=== PATIENT | female | born 1970 | race Caucasian/White ===

== ENCOUNTER 2016-08-02 08:00 | Day surgery (SDC) | payer BC ==
[2016-08-02] MEDS ORDERED: LIDOCAINE HCL 10 APPL CARTRIDGE TP ONE (14:20)
--- NOTE | 2016-08-02 14:45 | OR ---
Operative Report - Dictated Report Narrative: Location: Main OR Anesthesia: None Preoperative Diagnosis: Microhematuria Postoperative Diagnosis: Same Procedure: #1 flexible cystoscopy with washing for cytology Indications: 46-year-old female with microhematuria and significant cancer history in the family. Ultrasound obtained without renal masses or hydronephrosis. Cystoscopy indicated to clear the bladder. Description: Consent obtained. Placed in the frog-leg position. Prepped and draped. Time-out taken . Scope inserted into the urethra and navigated to the bladder with ease. No tumors stones or suspicious lesions . Washing was obtained sent for cytology. No real trabeculation Ureters normal in number and position Normal bladder neck Normal urethra EBL: 0 Specimen: Washing for cytology Condition: tolerate procedure Important Findings: Normal cystoscopy. Cytology pending FOLLOW UP: 6 month voided UA provided cytology normal
[2016-08-02 15:10] VITALS: BP 150/88
--- OUTSIDE RECORDS SUMMARY | 2016-08-04 13:24 | XMS REPORT | Continuity of Care Document ---
:1970 Author Organization [facility] ([facility]) Address [address] [place] [address] Phone [phone] Care Team Providers Name Role Phone Falguni Gregory Primary Care Provider [phone] Source Comments This disclosure is being made pursuant to the Care Everywhere program, applicable federal and state laws, and may not contain all informaitonavailable regarding this patient.[facility] ([facility]) Active Allergies and Adverse Reactions No Known Allergies Current Medications Prescription Sig. Disp. Refills Start Date End Date Status levothyroxine 50 mcg take 1 tablet 03/19/2012 Active tablet (50MCG) by oral route every day ZOLMitriptan 5 mg once as 2015 Active tablet needed. ZOLMitriptan 2.5 mg once as 2015 Active tablet needed. clotrimazole-betamet as needed. 06/21/2015 Active hasone 1-0.05% cream losartan-hydrochloro Take 1 tablet 90 tablet 3 07/29/2015 Active thiazide 100-12.5 mg by mouth per tablet daily. KATHRYN LO 40 40 % 06/21/2015 08/01/2016 Discontinued lotion Active Problems Problem Noted Date Hyperlipidemia Hypertension Overview: Formatting of this note may be different from the original. 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: Cath (Normal EF, Normal coronary arteriography) - 1992 ECHO/MUGA: Echo (Normal EF) - 03/19/2012 ELECTROPHYSIOLOGY: 24hr Amb ECG (Rare PACs, Sinus Rhythm) - 03/19/2012 Most Recent Encounters Date Type Specialty Providers Description 08/02/2016 Telephone Cardiac Rehabilitation Leanna Hodgson MD Chief Comp: Results 08/01/2016 Office Visit Heart and Vascular Leanna Hodgson MD Dx: Essential hypertension (Primary Dx) Social History Tobacco Use Types Packs/Day Years Used Date Never Smoker Last Filed Vital Signs Vital Sign Reading Time Taken Blood Pressure 112/78 08/01/2016 10:19 AM TOOTH CUTTER Pulse 66 08/01/2016 10:19 AM TOOTH CUTTER Temperature - - Respiratory Rate - - Height 1.778 m (5' 10") 08/01/2016 10:19 AM TOOTH CUTTER Weight 117.482 kg (259 lb) 08/01/2016 10:19 AM TOOTH CUTTER Body Mass Index 37.16 08/01/2016 10:19 AM TOOTH CUTTER Oxygen Saturation - - Plan of Care Date Type Specialty Providers Description 10/18/2016 Wait List Med GI/Hepatology 10/18/2016 Appointment Med GI/Hepatology Domitila Miranda MD Chief Comp: Patient [address] [place] [address] Visit [phone] (Fax) 08/14/2017 Appointment Heart and Vascular Leanna Hodgson MD Chief Comp: Patient [address] [place] [address] Visit [phone] (Fax) Health Maintenance Due Date Last Done Comments Hepatitis B Vaccine (1 of 3 - Primary Series) 1970 Tdap Vaccine 1982 Lipid Disorder Screening 1989 MMR Vaccine 1989 Td Vaccine 1989 Cervical Cancer Screening 2001 Mammogram 2011 Influenza Vaccine: Seasonal (#1) 12/27/2015 Results from Last 3 Months Not on file
== END 2016-08-02 08:01 | disposition home or self-care (01) ==
LOC: AMB 08:00
PROVIDERS: ATTEND Urology
PROC: 3E1K88X Irrigation of Genitourinary Tract using Irrigating Substance, Via Natural or Artificial Opening Endoscopic, Diagnostic (ICD-10-PCS; 2016-08-02)
PROC: 0TJB8ZZ Inspection of Bladder, Via Natural or Artificial Opening Endoscopic (ICD-10-PCS; principal; 2016-08-02 15:00)
DX: R31.29 Other microscopic hematuria (principal); E66.9 Obesity, unspecified; Z68.36 Body mass index [BMI] 36.0-36.9, adult

== ENCOUNTER 2016-10-23 16:20 | Emergency (ER) | payer BC ==
[2016-10-23] MEDS ORDERED: NALBUPHINE HCL 20 MG/ML AMPUL IM ONE (16:42)
--- OUTSIDE RECORDS SUMMARY | 2016-10-23 16:42 | XMS REPORT | Continuity of Care Document ---
:1970 Author Organization [facility] ([facility]) Address [address] [place] [address] Phone [phone] Care Team Providers Name Role Phone Falguni Gregory Primary Care Provider [phone] Source Comments This disclosure is being made pursuant to the Care Everywhere program, applicable federal and state laws, and may not contain all informaitonavailable regarding this patient.[facility] ([facility]) Active Allergies and Adverse Reactions No Known Allergies Current Medications Prescription Sig. Disp. Refills Start Date End Date Status ZOLMitriptan 5 mg once as 2015 Active tablet needed. ZOLMitriptan 2.5 mg once as 2015 Active tablet needed. clotrimazole-betamet as needed. 06/21/2015 Active hasone 1-0.05% cream LOSARTAN-HYDROCHLORO TAKE ONE 90 tablet 3 08/23/2016 Active THIAZIDE 100-12.5 mg TABLET BY per tablet MOUTH EVERY DAY cefdinir 300 mg Take 1 10/13/2016 Active capsule capsule by mouth 2 times daily. SYNTHROID 100 mcg Take 100 mcg 2 09/26/2016 Active tablet by mouth daily. levothyroxine 50 mcg take 1 tablet 03/19/2012 10/18/2016 Discontinued tablet (50MCG) by oral route every day Active Problems Problem Noted Date Hyperlipidemia Hypertension Overview: Formatting of this note may be different from the original. 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: Cath (Normal EF, Normal coronary arteriography) - 1992 ECHO/MUGA: Echo (Normal EF) - 03/19/2012 ELECTROPHYSIOLOGY: 24hr Amb ECG (Rare PACs, Sinus Rhythm) - 03/19/2012 Most Recent Encounters Date Type Specialty Providers Description 10/18/2016 Office Visit Med GI/Hepatology Domitila Miranda MD Dx: Chronic diarrhea (Primary Dx) 08/23/2016 Refill Cardiac Rehabilitation Leanna Hodgson MD Dx: HTN (hypertension) (Primary Dx) 08/02/2016 Telephone Cardiac Rehabilitation Leanna Hodgson MD Chief Comp: Results 08/01/2016 Office Visit Heart and Vascular Leanna Hodgson MD Dx: Essential hypertension (Primary Dx) Social History Tobacco Use Types Packs/Day Years Used Date Never Smoker Tobacco Cessation:Counseling Given: Yes Comments: Last Filed Vital Signs Vital Sign Reading Time Taken Blood Pressure 141/77 10/18/2016 8:53 AM CDT Pulse 89 10/18/2016 8:53 AM CDT Temperature 36.3 C (97.3 F) 10/18/2016 8:53 AM CDT Respiratory Rate - - Height 1.778 m (5' 10") 10/18/2016 8:53 AM CDT Weight 117.5 kg (259 lb 0.7 oz) 10/18/2016 8:53 AM CDT Body Mass Index 37.17 10/18/2016 8:53 AM CDT Oxygen Saturation - - Plan of Care Date Type Specialty Providers Description 08/14/2017 Appointment Heart and Vascular Leanna Hodgson MD Chief Comp: Patient [address] [place] [address] Visit [phone] (Fax) Health Maintenance Due Date Last Done Comments Hepatitis B Vaccine (1 of 3 - Primary Series) 1970 Tdap Vaccine 1982 Lipid Disorder Screening 1989 MMR Vaccine 1989 Td Vaccine 1989 Cervical Cancer Screening 2001 Mammogram 2011 Influenza Vaccine: Seasonal (Season Ended) 2016 Results from Last 3 Months TISSUE TRANSGLUTAMINASE IGA (10/18/2016 9:45 AM) Component Value Range TTG IgA, Quantitative <0.5 0.0-15.0 U/mL TTG IgA, Qualitative Negative Negative Specimen Blood THYROID STIMULATING HORMONE (10/18/2016 9:45 AM) Component Value Range TSH 1.75 0.27-4.20 IU/mL Specimen Blood C-REACTIVE PROTEIN (10/18/2016 9:45 AM) Component Value Range CRP (C-Reactive Protein) 0.8(H) <=0.5 mg/dL Specimen Blood COMPREHENSIVE METABOLIC PANEL (CMP) (10/18/2016 9:45 AM) Component Value Range Sodium 139 135-145 mEq/L Potassium 4.0 3.5-5.0 mEq/L Chloride 102 95-107 mEq/L CO2 25 22-29 mEq/L BUN 9(L) 10-20 mg/dL Creatinine 0.6Comment: 0.5-1.0 mg/dL Creatinine switched to enzymatic method on 10/04/2010.GFR equation switched to IDMS-traceable MDRD equation on 10/04/2010. Calculated GFR values are not valid in clinical settings where serum creatinine is changing. Glucose 84Comment: 65-99 mg/dL The Expert Committee on the Diagnosis and Classification of Diabetes has defined impaired fasting glucose as greater than or equal to 100 mg/dL but less than 126 mg/dL.(Diabetes Care 28 (Suppl 1)S41,2005) Calcium 9.4 8.5-10.5 mg/dL Total Protein 7.5 6.0-8.0 g/dL Albumin 4.1 3.4-4.8 g/dL AST 20Comment: 0-32 U/L Adult reference ranges updated on 04/22/13 at 830am ALP 64 35-104 U/L Bilirubin Total 0.3 <=1.2 mg/dL ALT 20Comment: 0-33 U/L The upper limit of normal for alanine aminotransferase (ALT) reference ranges for adults is controversial with some authorities recommending limit as low as 30 U/L for males and 19 U/L for females. Th ere is increased incidence of subclinical liver disease (e.g., early steatohepatitis) in patients with ALT values in the range of 31-41 U/L for males and 20-33 U/L for females. ALT values should alway s be interpreted in conjunction with clinical history, physical examination findings, and, if applicable, data from other diagnostic tests. Anion Gap 12 <17 mEq/L Calculated GFR >90 >60 mL/min/1.73 m2 Specimen Blood CBC (COMPLETE BLOOD COUNT) (10/18/2016 9:45 AM) Component Value Range WBC Count 7.9 3.7-10.5 K/MM3 RBC Count 4.55 4.00-5.20 M/MM3 Hemoglobin 13.7 11.9-15.5 g/dL Hematocrit 40 35-47 % MCV (Mean Corpuscular Volume) 87 82-99 FL MCH (Mean Corpuscular Hemoglobin) 30 25-35 PG MCHC (Mean Corpuscular Hemoglobin Concentration) 35 32-36 % Platelet Count 359 150-400 K/MM3 MPV (Mean Platelet Volume) 10.6 9.4-12.3 FL RBC Dist Width-STD 41.3 36.4-46.3 FL RBC Distrib Width 13.1 9.0-14.5 % Nucleated RBC 0 /100 WBC Specimen Whole Blood
[2016-10-23] MEDS ORDERED: DIPHTH,PERTUSS(ACELL),TET VAC 0.5 ML VIAL IM ONE ×2 (16:47→16:48)
[2016-10-23] MEDS ORDERED: NALBUPHINE HCL 20 MG/ML AMPUL ONE (16:48)
--- NOTE | 2016-10-23 16:50 | ERNOTE ---
Medical Problem HPI - Narrative Date of Service: 10/23/16 - General Chief Complaint: Laceration Time Seen by Provider: 10/23/16 16:36 Source: patient Exam Limitations: no limitations - Immun/Allergies/Home Medications Immunizations: IMMUNIZATION HX Immunizations Up to Date No History of Influenza Vaccine Yes Hx Pneumococcal Vaccination No Allergies/Adverse Reactions: Allergies No Known Allergies Allergy (Verified 08/02/16 12:29) Home Medications: HOME MEDICATIONS Zolmitriptan [Zomig] 5 mg PO DAILY PRN 10/27/12 [Last Taken Unknown] Levothyroxine Sodium [Synthroid] 75 mcg PO DAILY 08/02/16 [Last Taken 08/02/16] Losartan/Hydrochlorothiazide [Losartan-Hctz 100-12.5 mg Tab] 1 each PO DAILY 01/11 [Last Taken 08/02/16] - History of Present History Narrative: Pt. comes in with c/o laceration of L great toe when she was bear foot and kicked the end of a batting cage pipe. Pt. neighbor is a nurse and she wrapped up the wound and the bleeding was staunched at that time and has not returned since. Pt. denies any numbness or tingling. Review of Systems - Review of Systems Constitutional: Present: no symptoms reported. Absent: recent illness, fever, chills, weakness, fatigue, malaise EYE: Present: no symptoms reported ENT: Present: no symptoms reported Respiratory: Present: no symptoms reported. Absent: shortness of breath, cough , wheezing Cardiology: Present: no symptoms reported. Absent: chest pain Gastrointestinal/Abdominal: Present: no symptoms reported. Absent: nausea, vomiting, diarrhea Genitourinary: Present: no symptoms reported Musculoskeletal: Present: no symptoms reported. Absent: back pain, joint pain Skin: Present: other - laceration L great toe Neurological: Present: no symptoms reported. Absent: dizziness/light-headedness , numbness, tingling All Other Systems: All systems neg except as marked - Patient's Past Medical History Patient History - Medical: Hypothyroidism Patient History - Cardiac/Respiratory: Hypertension Patient History - Cancer: No Hx of Cancer Patient History - Surgical Procedures: Cholecystectomy, T & A, Other Patient History - Other: None - Social History Living Situations: home Abuse History: No History of abuse Psych History: No pertinent hx Smoking Status: Never smoker Have you smoked in the past 12 months: No Do you dip or chew tobacco: No Alcohol Use: occasionally Drug Use: none - Immunizations Immunizations Up to Date: No Hx Pneumococcal Vaccination: No History of Influenza Vaccine: Yes Physical Exam - Physical Exam General Appearance: Present: wd/wn, alert, no apparent distress Eye Exam: Normal inspection: bilateral, PERRL: bilateral, EOMI: bilateral Ears, Nose, Throat: Present: normal ENT inspection, normal pharynx Neck: Present: normal inspection, nontender. Absent: lymphadenopathy (R), lymphadenopathy (L) Respiratory: Present: no respiratory distress, normal breath sounds, no accessory muscle use, chest nontender, lungs clear Cardiovascular/Chest: Present: regular rate, rhythm, no murmur, normal peripheral pulses Back Exam: Present: normal inspection Extremity Exam: Present: other - laceration anterior L great toe x 2 superficial 1.5cm and 0.7 cm paralell Neurological Exam: Present: alert, oriented, normal mood/affect, no motor/ sensory deficits Skin Exam: Present: other - see above ED Progress - Vital Signs Patient's Vital Signs:: I have reviewed the patient's vital signs. Vital Signs: Vital Signs 10/23/16 16:30 Temperature 36.7 C Pulse Rate 87 Respiratory 16 Rate Blood Pressure 134/92 O2 Sat by Pulse 100 Oximetry - Progress/Reassessment Chief Complaint: Laceration Procedures Left Anterior Lateral Toe 1st Digit I & D Prep: betadine prep Wound's Depth/Shape: superficial, linear Wound Explored: clean, to base Wound Intervention: irrigated w/saline Distal NVT: neuro/vasc intact, no tendon injury Wound Repaired With: Dermabond Layer Closure: Simple Wound Dressing: sterile dressing applied Complications: Pt shania procedure well Comment: not over joint or on volar surface Departure - Departure Clinical Impression: Laceration Disposition: Home self-care Condition: Good Instructions: Laceration Care, Adult, [id number] Additional Instructions: Please follow up with primary provider in 2-3 days please keep dry for 1 week. Referrals: Falguni Gregory MD [Primary Care Provider] -
[2016-10-23 17:10] VITALS: BP 140/89
== END 2016-10-23 17:05 | disposition home or self-care (01) ==
LOC: ER 16:20
PROC: 0HQNXZZ Repair Left Foot Skin, External Approach (ICD-10-PCS; principal; 2016-10-23)
DX: S91.112A Laceration without foreign body of left great toe without damage to nail, initial encounter (principal); X78.8XXA Intentional self-harm by other sharp object, initial encounter; Y93.9 Activity, unspecified; Y92.9 Unspecified place or not applicable; I10 Essential (primary) hypertension; E03.9 Hypothyroidism, unspecified; Z23 Encounter for immunization

== ENCOUNTER 2017-04-26 20:06 | Emergency (ER) | payer BC ==
--- NOTE | 2017-04-26 21:17 | ERNOTE ---
ENT HPI Date of Service: 04/26/17 Presenting Symptoms: other - c/o sore throat and sinus drainage for last several days Time Seen by Provider: 04/26/17 20:26 Exam Limitations: no limitations - Immun/Allergies/Home Medications Immunizations: IMMUNIZATION HX Immunizations Up to Date Yes History of Influenza Vaccine Yes Hx Pneumococcal Vaccination No Allergies/Adverse Reactions: Allergies Allergy/AdvReac Type Severity Reaction Status Date / Time No Known Allergies Allergy Verified 04/26/17 20:25 Home Medications: HOME MEDICATIONS Zolmitriptan [Zomig] 5 mg PO DAILY PRN 10/27/12 [Last Taken Unknown] Levothyroxine Sodium [Synthroid] 100 mcg PO DAILY 08/02/16 [Last Taken 08/02/16] Losartan/Hydrochlorothiazide [Losartan-Hctz 100-12.5 mg Tab] 1 each PO DAILY 01/11 [Last Taken 08/02/16] Doxycycline Hyclate [Morgidox] 100 mg PO BID #20 capsule 04/26/17 [Last Taken Unknown] - History of Present Illness Narrative: onset of sore throat and sius pressure for last several days Severity: Present: moderate ENT Location: Present: nose, throat Prearrival Treatment: Present: no prearrival treatment Modifying Factors - Improves: Reports: nothing Modifying Factors - Worsens: Reports: activity Associated Symptoms - ENT: Reports: sore throat - no prior treatment, nasal congestion/drainage, facial pain/swelling Review of Systems - Review of Systems Constitutional: Present: See HPI, recent illness, malaise EYE: Present: no symptoms reported ENT: Present: nose pain, nose congestion, nasal drainage, sore throat Respiratory: Present: cough Cardiology: Present: no symptoms reported Gastrointestinal/Abdominal: Present: no symptoms reported Genitourinary: Present: no symptoms reported Musculoskeletal: Present: muscle stiffness Skin: Present: no symptoms reported Neurological: Present: no symptoms reported Endocrine: Present: no symptoms reported Hematologic/Lymphatic: Present: no symptoms reported Psych: Present: no symptoms reported All Other Systems: All systems neg except as marked - Patient's Past Medical History Patient History - Medical: Hypothyroidism Patient History - Cardiac/Respiratory: Hypertension Patient History - Cancer: No Hx of Cancer Patient History - Surgical Procedures: Cholecystectomy, T & A, Other Patient History - Other: None - Social History Living Situations: home Abuse History: No History of abuse Psych History: No pertinent hx Smoking Status: Never smoker Have you smoked in the past 12 months: No Do you dip or chew tobacco: No Patient requests Smoking Cessation Consult: No Initiate information on Smoking Cessation: No Alcohol Use: rarely Drug Use: none - Immunizations Immunizations Up to Date: Yes Hx Pneumococcal Vaccination: No History of Influenza Vaccine: Yes Physical Exam - Physical Exam Head Exam: Present: normal inspection, no evidence of injury Eye Exam: Normal inspection: bilateral, PERRL: bilateral, EOMI: bilateral Ears, Nose, Throat: Present: sinus pain/drainage, pharyngeal erythema, pharyngeal swelling Neck: Present: normal inspection, nontender Respiratory: Present: no respiratory distress, normal breath sounds, no accessory muscle use, chest nontender, lungs clear Cardiovascular/Chest: Present: regular rate, rhythm, no murmur, normal peripheral pulses Peripheral Pulses: N=norm/S=strong/W=weak/B=bound/A=absent: Carotid (R): Normal , Carotid (L): Normal, Radial (R): Normal, Radial (L): Normal, Femoral (R): Normal, Femoral (L): Normal, Dorsalis-pedis (R): Normal, Dorsalis-pedis (L): Normal Gastrointestinal/Abdominal: Present: normal bowel sounds, nontender, nondistended, soft, no organomegaly Back Exam: Present: normal inspection, normal range of motion, no CVA tenderness , no vertebral tenderness Extremity Exam: Present: normal inspection, non-tender, normal range of motion, no edema Neurological Exam: Present: alert, oriented, normal mood/affect, no motor/ sensory deficits DTR: N=norm/NB=norm/brisk/A=abs/DD=dull/dimin/HC=hyperactive: Bicep (R): Normal , Bicep (L): Normal, Tricep (R): Normal, Tricep (L): Normal, Knee (R): Normal, Knee (L): Normal, Ankle (R): Normal, Ankle (L): Normal Skin Exam: Present: normal color, warm/dry Lymphatic Exam: Present: no adenopathy ED Progress - Results and Orders Patient's Lab Results:: I have reviewed the patient's lab results. - Vital Signs Patient's Vital Signs:: I have reviewed the patient's vital signs. Vital Signs: Vital Signs 04/26/17 20:21 Temperature 37 C Pulse Rate 108 H Respiratory 18 Rate Blood Pressure 157/96 O2 Sat by Pulse 97 Oximetry - Progress/Reassessment Chief Complaint: Sore Throat Progress:: Unchanged - Transfer of Care Expected Disposition: Discharge Departure Clinical Impression: Sinusitis - Departure Disposition: Home self-care Condition: Fair Instructions: Sinusitis, Adult, [id number] Referrals: Falguni Gregory MD [Primary Care Provider] - Prescriptions: Doxycycline Hyclate [Morgidox] 100 mg PO BID #20 capsule
[2017-04-26] MEDS ORDERED: DOXYCYCLINE HYCLATE 100 MG TABLET ONE (21:30)
[2017-04-26] MEDS ORDERED: DOXYCYCLINE HYCLATE 100 MG TABLET PO ONE (21:36)
[2017-04-26 21:47] VITALS: BP 146/89
== END 2017-04-26 21:47 | disposition home or self-care (01) ==
LOC: ER 20:06
DX: J32.9 Chronic sinusitis, unspecified (principal); I10 Essential (primary) hypertension